=== PATIENT | male | born 1990 | race African-American/Black ===

== ENCOUNTER 2023-02-18 19:21 | Emergency (ER) | payer OTHER, SELFPAY ==
[2023-02-18 19:31] VITALS: BP 139/76; PULSE 55; RESP 16; TEMP 37.2; O2SAT 100
--- NOTE | 2023-02-18 19:43 | ED.URI ---
HPI - URI/Sore Throat General Chief Complaint: Upper Respiratory Infection Stated Complaint: Cough Time Seen by Provider: 02/18/23 19:43 Source: patient Mode of arrival: ambulatory Limitations: no limitations History of Present Illness HPI Narrative: 32-year-old male presents with complaint of cough, nasal congestion for 3 days. Reports that he is feeling under the weather . Afebrile. No chest pain or shortness of breath. Smokes marijuana daily. States he was recently exposed to pneumonia by his best friend. Patient reports coughing up green and yellow sputum. All systems reviewed and negative except as noted above. Related Data Home Medications Medication Instructions Recorded Confirmed promethazine 6.25 mg/5 mL oral mg 02/18/23 syrup Allergies Allergy/AdvReac Type Severity Reaction Status Date / Time No Known Allergies Allergy Verified 02/18/23 19:24 Review of Systems Review of Systems: CONSTITUTIONAL: Denies fever, chills, or sweats. reports fatigue. EYES: Denies visual changes, redness, or discharge. ENT: Denies rhinorrhea, congestion, sore throat, or otalgia. CARDIOVASCULAR: Denies chest pain, palpitations, or edema. RESPIRATORY: Reports cough . Denies dyspnea. GASTROINTESTINAL: Denies abdominal pain, nausea, vomiting, or diarrhea. GENITOURINARY: Denies dysuria or hematuria. SKIN: Denies rash or itching. MUSCULOSKELETAL: Denies back pain, joint pain, or myalgia. NEUROLOGIC: Denies headache, numbness, or weakness. PSYCHIATRIC: Denies anxiety or depression. All other systems reviewed are negative, except as documented in HPI. [facility] Past Medical History Medical History (Updated 02/18/23 @ 19:49 by Rissa Nazario NP) Patient denies medical problems Surgical History Surgical History (Updated 06/06/19 @ 21:26 by Nelida Bronson) No history of previous surgery Social History Social History (Updated 06/06/19 @ 21:26 by Nelida Bronson) Smoking status: Current every day smoker Tobacco type: cigarettes Gender identity (if verbalized by the patient): Male Comments At time of signature, agree with nursing past medical, surgical, social and family history. There is no relevant family history pertinent to the presenting complaint. Exam Narrative: GENERAL: This is a well-nourished, well-developed patient, in no apparent distress. patient small strongly of marijuana HEAD: normocephalic, atraumatic. EYES: PERRL. Sclera clear/white. Vision is grossly intact. EARS: External ears normal, auditory canals clear and without drainage, TMs normal without perforation. Hearing grossly intact. NOSE: External nose normal with clear nasal drainage, erythema to bilateral nares. THROAT: Mucous membranes moist, posterior pharynx clear. NECK: Neck supple, non-tender without lymphadenopathy, masses or thyromegaly. CARDIOVASCULAR: Regular rate and rhythm without murmurs, gallops, or rubs. RESPIRATORY: Clear to auscultation. Breath sounds equal bilaterally. No wheezes, rales, or rhonchi. SKIN: warm, Dry, intact with no suspicious lesions or rash, good texture and turgor. NEURO: awake, alert, and oriented to person, place and time. There were no obvious focal neurologic abnormalities. EXTREMITIES: No joint tenderness, effusion, or edema noted. Course Course Level of Care: Express Care Visit Vital Signs Vital signs: Vital Signs Temperature 37.2 C 02/18/23 19:31 Pulse Rate 55 L 02/18/23 19:31 Respiratory Rate 16 02/18/23 19:31 Blood Pressure 139/76 02/18/23 19:31 Pulse Oximetry 100 02/18/23 19:31 Oxygen Delivery Room Air 02/18/23 19:31 Temperature 37.2 C 02/18/23 19:31 Pulse Rate 55 L 02/18/23 19:31 Respiratory Rate 16 02/18/23 19:31 Blood Pressure 139/76 02/18/23 19:31 Pulse Oximetry 100 02/18/23 19:31 Oxygen Delivery Room Air 02/18/23 19:31 Reviewed MDM - URI/Sore Throat MDM Narrative Medical decision making narrative
== END 2023-02-18 19:51 | disposition home or self-care (01) ==
PROVIDERS: Emergency Provider Nurse Practitioner Family
DX: R05.9 Cough, unspecified (principal); Z20.89 Contact with and (suspected) exposure to other communicable diseases; F17.210 Nicotine dependence, cigarettes, uncomplicated
CPT/HCPCS: 99213; G0463